=== PATIENT | female | born 1950 | race Native Hawaiian/Other Pacific Islander ===

== ENCOUNTER 2018-08-29 03:28 | Emergency (ER) | payer OTHER ==
[~2018-08-29] VITALS: Ht 165.1 cm; Wt 81.6 kg
[2018-08-29 04:00] LABS: PLATELET COUNT 214 K/uL (152-353)
[2018-08-29 04:07] LABS: POTASSIUM 4.3 mmol/L (3.6-5.2)
[2018-08-29 04:50] VITALS: BP 125/90; TEMP 97.9
[2018-08-29] MEDS ORDERED: AMANTADINE HYD PO (06:31)
[2018-08-29] MEDS ORDERED: BISCOLAX10 MG RE (06:32)
[2018-08-29] MEDS ORDERED: ACID CONTROL20 MG PO (06:35)
[2018-08-29] MEDS ORDERED: POLYETHYLENE GLYCOL PO (06:37)
[2018-08-29] MEDS ORDERED: SEROQUEL200 MG PO (06:39)
[2018-08-29] MEDS ORDERED: MAALOX ADVAN PO (06:44)
[2018-08-29] MEDS ORDERED: TYLENOL325 MG PO (06:46)
== END 2018-08-29 04:50 | disposition other institution (70) ==
LOC: ED 03:28
PROVIDERS: Internal Medicine
DX: F20.89 Other schizophrenia (principal); E11.9 Type 2 diabetes mellitus without complications; I10 Essential (primary) hypertension; I44.7 Left bundle-branch block, unspecified; Z04.6 Encounter for general psychiatric examination, requested by authority
CPT/HCPCS: 80053; 81000; 85027; 93005; 99285